=== PATIENT | male | born 1945 | race Caucasian/White ===

== ENCOUNTER → 2017-06-29 | Outpatient (CLI) | payer MEDICARE | END | disposition home or self-care (01) | LOC: PCVCCLINIC 13:30 | PROVIDERS: ATTEND Internal Medicine Cardiovascular Disease | DX: I25.10 Atherosclerotic heart disease of native coronary artery without angina pectoris (principal); I10 Essential (primary) hypertension; E78.00 Pure hypercholesterolemia, unspecified; I73.9 Peripheral vascular disease, unspecified; I25.5 Ischemic cardiomyopathy; E11.9 Type 2 diabetes mellitus without complications; I25.2 Old myocardial infarction; I44.4 Left anterior fascicular block; I45.10 Unspecified right bundle-branch block; Z95.1 Presence of aortocoronary bypass graft; Z79.82 Long term (current) use of aspirin; Z79.4 Long term (current) use of insulin; Z87.891 Personal history of nicotine dependence; Z88.8 Allergy status to other drugs, medicaments and biological substances | CPT/HCPCS: 80061; 93005; G0463 ==

== ENCOUNTER → 2017-07-14 | Outpatient (CLI) | payer MEDICARE ==
--- NOTE | 2017-07-14 10:01 | PCVCIMAG ---
APPROVED REPORT Indications Stenosis Doppler Spectral Velocity Analysis PSV / EDVPSV / EDV ECA (R) 336 / 32 cm/sECA (L) 122 / 18 cm/s dICA (R) 67 / 25 cm/sdICA (L) 87 / 20 cm/s Gato (R) 67 / 15 cm/smICA (L) 87 / 23 cm/s pICA (R) 96 / 19 cm/spICA (L) 157 / 43 cm/s Bulb (R) 45 / 11 cm/sBulb (L) 54 / 9 cm/s dCCA (R) 41 / 9 cm/sdCCA (L) 62 / 12 cm/s mCCA (R) 36 / 11 cm/smCCA (L) 56 / 10 cm/s Vert (R) 57 / 9 cm/sVert (L) 80 / 17 cm/s ICA/CCA ICA/CCA Findings The right carotid bulb has moderate calcified plaque. The right proximal internal carotid artery shows <40% stenosis. The right common carotid artery shows no significant stenosis. The right external carotid artery shows >90% stenosis. The left carotid bulb has moderate heterogeneous plaque. The left proximal internal carotid artery shows 60-70% stenosis. The left common carotid artery shows no significant stenosis. The left external carotid artery shows <50% stenosis. Conclusion 1. Right internal carotid artery stens[place] (<40%) 2. Left internal carotid artery stenosis (60-70%) 3. Antegrade vertebral flow
--- NOTE | 2017-07-14 22:34 | PCVCIMAG ---
EXAM: AORTOILIAC DUPLEX INDICATION: Peripheral arterial disease FINDINGS: AORTA: Suprarenal aorta measures maximum diameter of 2.6 cm. There is not a fusiform infrarenal aortic aneurysm. The infrarenal aorta measures maximum diameter of 2.1 cm. No aortic stenosis. RIGHT COMMON ILIAC ARTERY: Maximum diameter is 1.5 cm. No significant stenosis. RIGHT EXTERNAL ILIAC ARTERY: No significant stenosis. LEFT COMMON ILIAC ARTERY: Maximum diameter is 1.3 cm. No significant stenosis. LEFT EXTERNAL ILIAC ARTERY: No significant stenosis. IMPRESSION: No abdominal aortic aneurysm. No aortoiliac stenosis seen. Incidental note is made of a 90% stenosis in the right common femoral artery with peak systolic velocity of 569 cm/s. LOC:OFFICE
--- NOTE | 2017-07-14 22:38 | PCVCIMAG ---
EXAM: BILATERAL LOWER EXTREMITY ARTERIAL DUPLEX INDICATION: Peripheral Arterial Disease. Leg pain. FINDINGS: Right Leg: Elevated systolic velocity common femoral artery 528 cm/s consistent with 80-90% stenosis. Profunda femoral arteries patent. Superficial femoral artery and popliteal arteries are patent. The anterior tibial, peroneal, and posterior tibial arteries are patent. Left Leg: The common femoral and profunda femoral arteries are patent. 50% stenosis in the [place] mid superficial femoral artery. Stent in the distal superficial femoral artery maintaining satisfactory patency. Popliteal artery is patent. The anterior tibial, peroneal, and posterior tibial arteries are patent. IMPRESSION: 80-90% stenosis right common femoral artery. 50% stenosis mid [place] left superficial femoral artery. Prior stent distal left superficial femoral artery is patent. LOC:OFFICE
--- NOTE | 2017-07-15 12:57 | PCVCIMAG ---
APPROVED REPORT Exam: Nuclear Stress Test Indication: CAD , Cardiomyopathy Patient Location: Out-Patient Stress Nurse: Herlidna Rosen RN, Gabriela Morales RN [place] Tech:Candice Leyva [facility] Ht: 5 ft 8 in Wt: 218 lbs BSA: 2.12 m2 HR: 56 bpm BP: 194/81 mmHg BMI: 33.1 Rhythm: SR, RBBB Medical History Medical History: HTN, Hyperlipidemia, PAD, CAD, Age Medications: ASA, Plavix, Furosemide, Hydralazine, Imdur, Lisinopril, Crestor Allergies: Niacin, Prednisone Previous Cardiac Procedures: CABG Pretest Chest Pain Characteristics: No chest pain Exercise History: Physically active Meds Held (24 hrs): Coreg NM EXAM: Myocardial Perfusion REST/STRESS Imaging Protocol: Rest Tc-99m/Stress Tc-99m 1 day Resting Data Rest SPECT myocardial perfusion imaging was performed in supine position 45 minutes following the intravenous injection of 17.1 mCi of Tc-99m Sestamibi. Time of rest injection: 1030 Date: 07/14/2017 Administration Route: IV Administration Site: Right Arm Pharmacologic Stress Pharmacologic stress test was performed by injecting Regadenoson 0.4 mg IV push followed by the intravenous injection of 44.9 mCi of Tc-99m Sestamibi. Time of stress injection: 1145 Date: 07/14/2017 Administration Route: IV Administration Site: Right Arm Gated Stress SPECT was performed 45 minutes after stress injection. The images were gated to evaluate regional wall motion and calculate left ventricular ejection fraction. Study Data Post stress, the left ventricular ejection was 59%.. SSS: 8 SRS: 0 SDS: 8 TID = 0.78. 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 Post stress, the left ventricular ejection was 59%.. No prior study available for comparison. Interpreted by: Gaurav Sen MD Electronically Approved: 07/14/2017 23:03:32 Stress Test Details Stress Test: Pharmacologic stress testing performed using 0.4 mg of regadenoson per 5 mL given IV over 10 seconds. Reason for pharmacologic stress test: physical limitation. HR Resting HR: 56 bpmMax Heart Rate (APMHR): 150 bpm Max HR Achieved: 76 bpmTarget HR (85% APMHR): 127 bpm % of APMHR: 50 Recovery HR: 65 bpm BP Resting BP: 194/81 mmHg Max BP: 173/77 mmHg ECG Resting ECG: Sinus Bradycardia, , 1st degree AV block,, RBBB Stress ECG: Sinus Rhythm, 1st degree AV block,, RBBB Recovery ECG: Sinus Rhythm, 1st degree AV block,, RBBB, Inferior PA pattern Clinical Reason for Termination: Completed protocol Stress Symptoms: Dyspnea Exercise duration: 0 min 55 sec Symptoms resolved during recovery. Stress ECG Conclusion ECG: Non-ischemic <Conclusion> ECG: Non-ischemic
== END | disposition home or self-care (01) ==
LOC: PCVCIMAG 08:09
PROVIDERS: ATTEND Internal Medicine Cardiovascular Disease
DX: I70.291 Other atherosclerosis of native arteries of extremities, right leg (principal); I70.202 Unspecified atherosclerosis of native arteries of extremities, left leg; I65.23 Occlusion and stenosis of bilateral carotid arteries; I25.10 Atherosclerotic heart disease of native coronary artery without angina pectoris; E11.9 Type 2 diabetes mellitus without complications; I42.9 Cardiomyopathy, unspecified; I45.10 Unspecified right bundle-branch block; K52.9 Noninfective gastroenteritis and colitis, unspecified; I44.0 Atrioventricular block, first degree; I10 Essential (primary) hypertension; E78.5 Hyperlipidemia, unspecified; I25.2 Old myocardial infarction; Z95.828 Presence of other vascular implants and grafts; Z95.1 Presence of aortocoronary bypass graft
CPT/HCPCS: 78452; 93017; 93880; 93925; 93978; A9500

== ENCOUNTER → 2017-07-27 | Outpatient (CLI) | payer MEDICARE ==
[~2017-07-27] MED LIST: DIAZEPAM 10 MG TABLET. ONE; EPINEPHrine 1 MG/ML VIAL ONE; EPTIFIBATIDE BOLUS 2,000 MCG/ML 10ML VIAL. IV ONE; HEPARIN SODIUM 5,000 UNIT/ML VIAL for PCVC. ONE; HEPARIN for ARTERIAL LINE 1,500 ML ONE; IODIXANOL 270 MG/ML 100 ML VIAL. ONE; IOHEXOL 350 MG/ML 100 ML VIAL. ONE; IV NORMAL SALINE 1000ML BAG 1,000 ML ONE; IV NORMAL SALINE 500ML BAG 500 ML ONE; IV NORMAL SALINE 50ML 50 ML ONE; LIDOCAINE 1% Multi-Dose 20 ML VIAL. ONE; MIDAZOLAM HCL/PF 2 MG/2 ML VIAL. ONE; ceFAZolin SODIUM 1 GM VIAL ONE; fentaNYL PF VIAL 100 MCG/2 ML VIAL ONE; hydrALAZINE 20 MG/ML VIAL. ONE
--- NOTE | 2017-07-27 09:52 | PCVCINTER ---
EXAM: 1. AORTOGRAM AND BILATERAL LOWER EXTREMITY RUNOFF ANGIOGRAM 2. BILATERAL RENAL ANGIOGRAPHY 3. RIGHT COMMON FEMORAL ARTERY ATHERECTOMY. 4. SECONDARY THROMBECTOMY RIGHT COMMON FEMORAL ARTERY. 5. DRUG COATED BALLOON ANGIOPLASTY RIGHT COMMON FEMORAL ARTERY. INDICATION: Peripheral arterial disease. Coronary artery disease. Nonhealing ulcer right lower extremity. Hypertension. Renal atherosclerosis. PROCEDURE: Procedure and risks of angiography intervention is appropriate including limb loss stroke and were discussed with the patient's family and consent obtained. The patient's left groin was prepped abnormal sterile fashion. IV conscious sedation was used to procedure with appropriate monitoring from 7:45 AM through 9:15 AM. A left groin 6 [place] sheath was in place from prior cardiac catheterization. Through this a 5 Gabonese flush catheter was placed into the abdominal aorta at the level of the renal arteries and AP aortogram was performed. Catheter was positioned at the aortic bifurcation and both oblique views of the pelvis were obtained. Catheter was positioned into the left external iliac artery and left leg runoff angiography was performed. Catheter was exchanged for a visceral catheter was placed into the right renal arteries and right renal angiograms obtained. Catheter was placed into the the left renal arteries and left renal angiograms were obtained. Catheter was advanced to the level of the right external iliac artery and right leg runoff angiography was obtained. Patient was given 4500 units of heparin. A 6 Gabonese crossover sheath was placed via the left groin to the level of the right common femoral artery. Atherectomy of the right common femoral artery was performed with 2.0 mm [email or web address] laser atherectomy catheter in the standard fashion. Following atherectomy small areas of thrombus were observed and because of this secondary thrombectomy throughout the right common femoral artery was carried out with mechanical suction thrombectomy catheter in the standard fashion. Minimal debris was removed. Following this drug coated balloon angioplasty of the right common femoral artery was carried out with a 6 x 40 Medtronic Admiral [employer] catheter. Follow-up angiogram was performed. Catheters and wires removed. Sheath was removed and hemostasis obtained using the FISH device. No immediate complications. FINDINGS: Aortogram: There is one right and one left renal artery. Moderate plaque infrarenal abdominal aorta without significant stenosis. Pelvis: Previous stent right common iliac artery maintaining good patency. Mild 30% stenosis mid left common iliac artery. Both internal iliac arteries are patent. Both external iliac arteries are patent. Right renal artery: Mild plaque proximal vessel does not cause significant stenosis. Left renal artery: Mild plaque proximal vessel does not cause significant stenosis. Right leg: Focal 90% stenosis mid common femoral artery. Profunda femoral artery is patent. Moderate plaque mid superficial femoral artery does not cause flow-limiting stenosis. Popliteal artery shows good patency. Three-vessel runoff into the foot. Left leg: Common femoral and profunda femoral artery are patent. Moderate plaque mid superficial femoral artery resulting in 50% stenosis not felt to be critically flow-limiting. Previous stent distal superficial femoral artery is widely patent. Popliteal artery is patent. Three-vessel runoff into the foot. Right common femoral artery: Following procedure there is improvement in patency although there remains 50% residual stenosis with controlled dissection. Given the location it was not felt advisable to place a stent. IMPRESSION: 90% stenosis mid right common femoral artery was treated as above with improvement in patency with 50% residual stenosis. I will follow-up with the patient in 3 months regarding his progress. 50% stenosis [place] mid left superficial femoral artery not felt to be critically flow-limiting. Previous stent distal left superficial femoral artery is widely patent. follow up LOC:[place] [id number]
--- NOTE | 2017-07-27 12:57 | PCVCINTER ---
APPROVED REPORT Patient Details Patient Status: Room #: 1 The patient is a 71 year-old Male Event Personnel Apryl Powell MD, Ti Patterson RT(R), Gunnar Paula RN, Dyana Flyod RT(R) Risk Factors Arterial HypertensionDysplipidemia (Type: 1), Peripheral Vascular Disease, Hypercholesterolemia, Diabetes (Control: Insulin)Last Creatanine 1.3Tobacco History (Former) Previous Procedures/Diagnoses Previous CABG, Previous Femoral Procedure, Previous CHFPrevious SC, CAD, Peripheral vascular disease->Positive non-invasive/invasive test, Diabetes, Hypertension Procedure Narrative A sheath was inserted into the left femoral artery. Coronary angiography was performed using coronary diagnostic catheters. The right coronary system was accessed and visualized with a Diagnostic catheter. The left coronary system was accessed and visualized with a Diagnostic catheter. The left ventricle was accessed and visualized with a Diagnostic catheter. Hemodynamics The right atrial mean pressure is 19 mmHg. The right ventricular pressure is 148 mmHg. The pulmonary artery pressure is 148 mmHg with a mean of 19 mmHg. The mean pulmonary capillary wedge pressure is 19 mmHg. The aortic pressure is 139/46 mmHg with a mean of 73 mmHg. The left ventricular pressure is 148/11 mmHg with a mean of 19 mmHg. Conclusion #1 normal left ventricular size and systolic function EF 50-55% 2 long left main with an eccentric 50% mid and 50% distal lesion giving rise to an LAD which then occludes and a 1 large circumflex OM branch #3 proximal LAD 50% then occludes small diagonal branch remains patent #4 [place] to LAD is intact widely patent with minimal irregularity this LAD is widely pain extends around the apex #5 [place] right is occluded #6 SVG to OM occluded #7 SVG to the distal right PDA is intact with a distal anastomosis of 30-40% there is an eccentric 40% proximal graft lesion #8 the proximal circumflex 3040% giving rise to a OM branch remainder of the circumflex system is occluded as is the vein graft to this system. Dr. Sen will complete lower extremity angiography see his dictation. No lifting for 48 hours to lying in tub Jacuzzi or Torres for a week. Restart home medications.
== END | disposition home or self-care (01) ==
LOC: PCVCINTER 06:56
PROVIDERS: ATTEND Nuclear Medicine Nuclear Cardiology
DX: I70.213 Atherosclerosis of native arteries of extremities with intermittent claudication, bilateral legs (principal); I25.10 Atherosclerotic heart disease of native coronary artery without angina pectoris; E78.5 Hyperlipidemia, unspecified; I10 Essential (primary) hypertension; E78.00 Pure hypercholesterolemia, unspecified; E11.9 Type 2 diabetes mellitus without complications; Z95.1 Presence of aortocoronary bypass graft
CPT/HCPCS: 36252; 37225; 75716; 76937; 93458; 99152; 99153; C1725; C1751; C1757; C1769; C1885; C1894; C2623; J0171; J0360; J0690; J1327; J1644; J2250; J3010; J7030; J7040; Q9967

== ENCOUNTER → 2019-01-26 | Outpatient (CLI) | payer MEDICARE ==
--- NOTE | 2019-01-26 12:01 | PCVCIMAG ---
EXAM: BILATERAL LOWER EXTREMITY ARTERIAL DUPLEX INDICATION: Peripheral Arterial Disease. Leg pain. FINDINGS: Right Leg: Moderate stenosis common femoral artery. Profunda femoral arteries patent. 40-50% stenosis distal [place] superficial artery. Popliteal artery is patent. Anterior tibial, peroneal, and posterior tibial arteries are patent. Left Le-70% stenosis distal external iliac artery. Common femoral profunda femoral arteries are patent. 40-50% stenosis distal [place] superficial femoral artery. Popliteal artery is patent. Anterior tibial, peroneal, and posterior tibial arteries are patent. IMPRESSION: 40-50% stenosis distal [place] right superficial femoral artery. 60-70% stenosis distal [place] left external iliac artery. 40-50% stenosis distal [place] left superficial femoral artery. LOC:[id number]
== END | disposition home or self-care (01) ==
LOC: PCVCIMAG 11:12
PROVIDERS: ATTEND Internal Medicine Cardiovascular Disease
DX: E11.51 Type 2 diabetes mellitus with diabetic peripheral angiopathy without gangrene (principal); I25.10 Atherosclerotic heart disease of native coronary artery without angina pectoris; I25.5 Ischemic cardiomyopathy; E78.00 Pure hypercholesterolemia, unspecified; I65.23 Occlusion and stenosis of bilateral carotid arteries; I77.1 Stricture of artery; I10 Essential (primary) hypertension; Z87.891 Personal history of nicotine dependence; Z79.899 Other long term (current) drug therapy
CPT/HCPCS: 36415; 80061; 93005; 93925; G0463

== ENCOUNTER → 2019-07-14 | Outpatient (CLI) | payer MEDICARE ==
--- NOTE | 2019-07-14 12:39 | PCVCIMAG ---
EXAM: BILATERAL CAROTID DUPLEX INDICATION: Carotid Occlusive Disease. FINDINGS: Doppler Measurements (centimeters per second): RIGHT: Peak CCA-30, Peak ECA-362, Diastolic ICA-21, Peak ICA-96, ICA/CCA Ratio-3.2. LEFT: Peak CCA-70, Peak ECA-129, Diastolic ICA-41, Peak ICA-139, ICA/CCA Ratio-2.0. RIGHT CAROTID: The carotid bulb has moderate plaque. The proximal internal carotid artery shows <40% stenosis. The common carotid artery shows no significant stenosis. The external carotid artery shows 90% stenosis. LEFT CAROTID: The carotid bulb has moderate plaque. The proximal internal carotid artery shows 50% stenosis. The common carotid artery shows no significant stenosis. The external carotid artery shows 40% stenosis. Antegrade flow in both vertebral arteries. IMPRESSION: <40% stenosis of the right internal carotid artery with moderate plaque. 50% stenosis of the left internal carotid artery with moderate plaque. No change since April 2018 study. LOC:[id number]
--- NOTE | 2019-07-14 14:31 | PCVCIMAG ---
EXAM: AORTOILIAC DUPLEX INDICATION: Peripheral arterial disease FINDINGS: AORTA: Suprarenal aorta measures maximum diameter of 3.1 cm. There is not a fusiform infrarenal aortic aneurysm. The infrarenal aorta measures maximum diameter of 2.4 cm. No aortic stenosis. RIGHT COMMON ILIAC ARTERY: Maximum diameter is 1.0 cm. No significant stenosis. RIGHT EXTERNAL ILIAC ARTERY: No significant stenosis. LEFT COMMON ILIAC ARTERY: Maximum diameter is 1.0 cm. No significant stenosis. LEFT EXTERNAL ILIAC ARTERY: No significant stenosis. IMPRESSION: No abdominal aortic aneurysm. No aortoiliac stenosis seen. Previous left common iliac artery stent is patent. LOC:[id number]
--- NOTE | 2019-07-14 14:35 | PCVCIMAG ---
EXAM: BILATERAL LOWER EXTREMITY ARTERIAL DUPLEX INDICATION: Peripheral Arterial Disease. Leg pain. FINDINGS: Right Leg: Satisfactory arterial waveforms throughout the common/profunda/superficial femoral, popliteal, anterior tibial, peroneal, and posterior tibial arteries. No flow limiting stenosis seen. Left Leg: Common femoral profunda femoral arteries are patent. 40-50% stenosis mid/distal left superficial femoral artery within prior stent not felt be critically flow-limiting. Anterior tibial, peroneal, and posterior tibial arteries are patent. IMPRESSION: No flow limiting stenosis in the right lower extremity. 40-50% mid/distal left superficial femoral artery within prior stent not felt be critically flow-limiting and unchanged since January 2019 study. LOC:[id number]
== END | disposition home or self-care (01) ==
LOC: PCVCIMAG 08:27
PROVIDERS: ATTEND Nuclear Medicine Nuclear Cardiology
DX: I65.23 Occlusion and stenosis of bilateral carotid arteries (principal); I73.9 Peripheral vascular disease, unspecified; I77.9 Disorder of arteries and arterioles, unspecified; M79.662 Pain in left lower leg; M79.661 Pain in right lower leg; Z87.891 Personal history of nicotine dependence
CPT/HCPCS: 93880; 93925; 93978